=== PATIENT | female | born 1985 | race Caucasian/White ===

== ENCOUNTER 2016-10-31 17:33 | Emergency (ER) | payer OTHER ==
[2016-10-31 15:11] LABS: URINE SOURCE CLEAN CATCH
[2016-10-31 15:14] LABS: URINE APPEARANCE CLEAR; URINE BILIRUBIN NEG (NEG); URINE BLOOD NEG (NEG); URINE COLOR YELLOW; URINE GLUCOSE NEG (NORM); URINE KETONE NEG (NEG); URINE LEUKOCYTE ESTERASE TRACE (NEG); URINE NITRATE NEG (NEG); URINE PH 5.5 (5-8); URINE PROTEIN NEG (NEG); URINE UROBILINOGEN 0.2 MG/DL (NORM)
[2016-10-31 15:27] LABS: MICRO INDICATED? YES
[2016-10-31 15:47] LABS: URINE RBC 0-2 /[HPF] (0-2); URINE WBC 0-2 /[HPF] (0-5)
[2016-10-31 15:48] LABS: CULTURE INDICATED? NO; URINE BACTERIA NEG (NEG); URINE SQUAMOUS EPITHELIAL CELL MODERATE /[HPF]
[~2016-10-31 17:33] MED LIST: AMBIEN10 MG PO; CELEXA20 MG PO; CIPRO PO; FLEXERIL10 MG PO; NAPROSYN500 MG PO; NEXIUM PO; PHENERGAN PO; PHENERGAN25 M1; PHENERGAN25 MG PO; PRILOSEC PO; REGLAN PO; REGLAN10 MG PO; ULTRAM PO; VICODIN 5/1 TAB 5/50 PO; VOLTAREN75 MG PO
== END 2016-10-31 17:35 | disposition home or self-care (01) ==
LOC: SED 17:33
PROVIDERS: Physician Assistant
DX: B37.2 Candidiasis of skin and nail (principal); R10.2 Pelvic and perineal pain; Z90.49 Acquired absence of other specified parts of digestive tract; Z88.0 Allergy status to penicillin; Z88.5 Allergy status to narcotic agent; Z88.8 Allergy status to other drugs, medicaments and biological substances; Z91.040 Latex allergy status
CPT/HCPCS: 81003; 84703; 99283